=== PATIENT | female | born 1985 | race Caucasian/White ===

== ENCOUNTER 2019-12-25 16:51 | Emergency (ER) | payer OTHER, SELFPAY ==
[2019-12-25 17:17] VITALS: BP 117/80; PULSE 78; RESP 18; TEMP 36.5; O2SAT 98; BMI 29.8
[2019-12-25 18:05] LABS: Influenza A - CEPHEID Flu A NEGATIVE (NEGATIVE); Influenza B - CEPHEID Flu B NEGATIVE (NEGATIVE)
--- NOTE | 2019-12-25 22:03 | DI.RAD.S_ITS ---
PROCEDURE: XR CHEST 2V INDICATIONS: productive cough , fever myalgis TECHNIQUE: 2 views of the chest were acquired. COMPARISON: None. FINDINGS: Surgical changes and devices: None. Lungs and pleura: Increased attenuation is identified at the left lung base. No large effusion or pneumothorax is evident. Mediastinum: Mediastinal contours are normal. Heart size is normal. Bones and chest wall: No suspicious bony abnormalities. Soft tissues appear unremarkable. IMPRESSION: Left lower lobe pneumonia. Dictated by: Francisco Restrepo M.D. on 12/25/2019 at 22:00 Approved by: Francisco Restrepo M.D. on 12/25/2019 at 22:01
[2019-12-25] MEDS: KETOROLAC 60 MG/2 ML VIAL 30 MG IM (22:59)
--- NOTE | 2019-12-25 23:15 | ED_ITS ---
HPI - URI/Sore Throat General Chief Complaint: Upper Respiratory Symptoms Stated Complaint: FEVER ACHES Time Seen by Provider: 12/25/19 21:55 Source: patient Mode of arrival: Ambulatory History of Present Illness HPI Narrative: CC: Fever with Body Aches HPI: The patient is a 34-year-old female who presents to the emergency department with diffuse fatigue and weakness. The patient woke up Saturday feeling weak and tired with diffuse body aches, generalized headache with fever chills and sweats. She denied any fall or injury. She developed a cough productive of a sputum that she did not look at it because it is difficult to bring up. She has had chest pain with coughing and deep breathing. She denied any nasal drainage sinus congestion or sore throat. She has had a tussive headache. She denies any numbness tingling paresthesias anesthesia is or paresis. She has had no significant abdominal pain but has had nausea without vomiting and diarrhea without melena or hematochezia. She has had nose urinary symptoms no dysuria frequency or urgency. 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 Related Data Previous Rx's Medication Instructions Recorded azithromycin [Zithromax] 250 mg PO DAILY 5 Days tab 12/25/19 benzonatate [Tessalon Perles] 100 mg PO TID PRN #14 cap 12/25/19 Allergies Allergy/AdvReac Type Severity Reaction Status Date / Time acetaminophen [From Vicodin] Allergy Verified 12/25/19 17:21 hydrocodone [From Vicodin] Allergy Verified 12/25/19 17:21 Iodinated Contrast Media Allergy Verified 12/25/19 17:21 Review of Systems Review of Systems ROS Unobtainable: All systems reviewed & are unremarkable except as noted in HPI and below Patient History Social History Smoking Status: Never smoker Smoking Status: Never smoker alcohol intake frequency: holidays/special occasions only Substance Use Type: does not use Exam Narrative Exam Narrative: PHYSICAL EXAM: CONSTITUTIONAL: Awake, Alert, Oriented, Coherent, Cooperative in NAD. The patient appears generally tired and fatigued. HEAD: AT/NC EENT: PERRL, FROM of eyes, no discharge, no nystagmus Oral mucosa is moist and pink, posterior pharynx is without erythema or exudate. NECK: Supple, no obvious JVD, Trachea is midline without stridor, no palpable LN or masses. SPINE: No gross deformity, no palpable tenderness of the cervical, thoracic, lumbar or sacral spine. No CVA tenderness. THORAX: No deformity, retractions, chest wall tenderness, subcutaneous air or crepitice. LUNGS: Her basically clear with symmetrical breath sounds. However the patient has a few inspiratory crackles in the left lower base. No significant expiratory rhonchi or wheezes. HEART: Normal heart tones, regular rhythm and rate without murmur. ABDOMEN: Soft, non-tender, normal bowel sounds without guarding, rebound, rigidity or palpable mass or organomegaly. LYMPHATIC: no palpable lymph nodes EXTREMITIES: No edema, cyanosis, deformity or tenderness. SKIN: No rash, bruising, petechiae or purpura. NEURO: Awake, alert, oriented, conversive, cranial nerves II-XII are symmetrical and normal, moves all 4 extremities and is ambulatory Initial Vital Signs Initial Vital Signs: Vital Signs Temperature 97.7 F 12/25/19 17: Pulse Rate 78 12/25/19 17:17 Respiratory Rate 18 12/25/19 17:17 Blood Pressure 117/80 12/25/19 17:17 Pulse Oximetry 98 12/25/19 17:17 Course Course Course Narrative: 2310: Chest x-ray reveals that the patient has a left lower lobe pneumonia. An IV will be started and she will be administered 1 g of Rocephin and 500 mg of Zithromax p.o.. She will be discharged home on Zithromax and be advised to follow-up in be re-evaluated by her family doctor in 48-72 hours. Orders Ordered: Discontinued Medications Azithromycin (Zithromax) 500 mg PO NOW ONE Stop: 12/25/19 23:19 Last Admin: 12/25/19 23:59 Dose: 500 mg Documented by: RUSLAN Ceftriaxone Sodium (Rocephin) 1,000 mg IM NOW ONE Stop: 12/25/19 23:17 Last Admin: 12/26/19 00:00 Dose: 1,000 mg Documented by: URSLAN Ketorolac Tromethamine (Toradol) 30 mg IM NOW ONE Stop: 12/25/19 22:06 Last Admin: 12/25/19 22:59 Dose: 30 mg Documented by: MMERKEL Vital Signs Vital signs: Vital Signs - 8 hr 12/26/19 00:09 Temperature 99.1 F Pulse Rate 86 Respiratory Rate 18 Blood Pressure 110/70 Pulse Oximetry 95 MDM - URI/Sore Throat Medical Records Attestation: I reviewed the patient's medical records. Lab Data Attestation: I reviewed the patient's lab results. Labs: Lab Results 12/25/19 Range/Units 17:18 Influenza A (RT-PCR) Flu a negative (NEGATIVE) Influenza B (RT-PCR) Flu b negative (NEGATIVE) [facility] Narrative Medical decision making narrative: The patient was treated with Rocephin and 500 mg of Zithromax for a left lower lobe pneumonia. She was discharged home on Zithromax 250 mg per day. She was advised to follow-up with her primary care physician and be re-evaluated in 3-4 days. Discharge Plan Departure Patient Disposition: Home Clinical Impression: Productive cough, Myalgia, Generalized body aches Pneumonia Qualifiers: Pneumonia type: due to unspecified organism Laterality: left Lung location: lower lobe of lung Qualified Code(s): J18.9 - Pneumonia, unspecified organism Discharge Date/Time: 12/26/19 00:18 Instructions: DI for Pneumonia -- Adult, DI for Cough -- Adult, DI for Fever (Symptom) -- Adult Activity Restrictions/Additional Instructions: Drink 2-3 L of fluid per day. Take ibuprofen 3, 200 mg tablets every 6 hours for fever aches and pains. You can take acetaminophen/Tylenol 1 g every 6 hours for fever aches and pains. Take the Zithromax 250 mg per day as prescribed until gone. Use the Tessalon Perles 100 mg 3 times a day as needed for cough. If you develop worsening chest pain, shortness of breath, difficulty in breathing, return to the emergency department. Otherwise follow-up with your primary care physician and be re-evaluated in 2-3 days. Prescriptions: New benzonatate [Tessalon Perles] 100 mg capsule 100 mg PO TID PRN (Reason: cough) Qty: 14 RF: 0 azithromycin [Zithromax] 250 mg tablet 250 mg PO DAILY 5 Days RF: 0
[2019-12-25] MEDS: LIDOCAINE 1% (PF) 2 ML (23:59)
[2019-12-25] MEDS: AZITHROMYCIN 250 MG TABLET 500 MG PO (23:59)
[2019-12-26] MEDS: cefTRIAXone 2,000 MG VIAL 1000 MG IM
[2019-12-26 00:09] VITALS: BP 110/70; PULSE 86; RESP 18; TEMP 37.3; O2SAT 95
== END 2019-12-26 00:18 | disposition home or self-care (01) ==
PROVIDERS: Emergency Medicine; Emergency Provider Emergency Medicine
DX: J18.9 Pneumonia, unspecified organism (principal); R05 Cough; M79.10 Myalgia, unspecified site; R52 Pain, unspecified
CPT/HCPCS: 71046; 87502; 96372; 99283; J0696; J1885

== ENCOUNTER 2020-01-25 17:53 | Emergency (ER) | payer OTHER, SELFPAY ==
[2020-01-25 17:56] VITALS: BP 110/76; PULSE 77; RESP 18; TEMP 36.9; O2SAT 100
[2020-01-25 18:44] VITALS: BP 115/78; PULSE 79; RESP 15; TEMP 36.6; O2SAT 97
--- NOTE | 2020-01-25 19:23 | DI.RAD.S_ITS ---
PROCEDURE: XR CHEST 2V INDICATIONS: SOB, hx pneumonia and treated with two courses of abx med TECHNIQUE: 2 views of the chest were acquired. COMPARISON: [facility], CR, XR CHEST 2V, 12/25/2019, 22:00. FINDINGS: Surgical changes and devices: None. Lungs and pleura: Lungs are abnormal best seen on the lateral view with increased radiodensity over the low thoracic spine. This implies a posterior mild pneumonia pattern, which cannot be clearly identified on the frontal projection. This may be secondary to the position of the pneumonia below the axial level of the current position of the dome of the diaphragms. No pleural effusions or pneumothorax. Mediastinum: Mediastinal contours are normal. Heart size is normal. Bones and chest wall: No suspicious bony abnormalities. Soft tissues appear unremarkable. IMPRESSION: Mild or early pneumonia posteriorly, laterality uncertain. Dictated by: Barry Russell M.D. on 01/25/2020 at 19:54 Approved by: Barry Russell M.D. on 01/25/2020 at 19:56
--- NOTE | 2020-01-25 19:42 | ED_ITS ---
HPI - URI/Sore Throat <LEAH Tatum - Last Filed: 01/25/20 21:37> General Chief Complaint: Upper Respiratory Symptoms Stated Complaint: Pneumonia for 1 Month, SOB, Tingly Time Seen by Provider: 01/25/20 18:56 Source: patient Mode of arrival: Ambulatory Limitations: no limitations History of Present Illness HPI Narrative: This is a 34 year female who presents to ED with ongoing upper respiratory infection/pneumonia symptoms and sore throat for last 2 days. Patient was seen in the ER in the beginning of December and was treated for pneumonia with IV Rocephin 1 g and discharged to home with azithromycin for 5 day course. She then developed rash after completing is a course of azithromycin a day or 2 days. She was not able to follow-up with her PCP as instructed. However, she followed up with walk-in clinic at [facility] and was told she still has pneumonia and was prescribed with Levaquin for 10 day course. After she completed Levaquin, she reports fever and chills resolved but she still has short of breath and rattling in feeling in her chest, stabbing discomfort in her upper chest and left upper back. She gets winded easily at times. She also has difficult time sleeping last 2 weeks. She denies foreign travel. She reports her son recently had strep throat and is currently taking antibiotic medications. She continues to have nasal congestion is as well. Related Data Home Medications Medication Instructions Recorded Confirmed albuterol sulfate [ProAir HFA] INHALATION 01/25/20 loratadine 10 mg PO DAILY 01/25/20 01/25/20 Previous Rx's Medication Instructions Recorded benzonatate [Tessalon Perles] 100 mg PO TID PRN #14 cap 12/25/19 doxycycline hyclate 100 mg PO BID 7 Days #14 tab 01/25/20 prednisone 40 mg PO DAILY 4 Days #8 tab 01/25/20 Allergies Allergy/AdvReac Type Severity Reaction Status Date / Time acetaminophen [From Vicodin] Allergy Verified 12/25/19 17:21 hydrocodone [From Vicodin] Allergy Verified 12/25/19 17:21 Iodinated Contrast Media Allergy Verified 12/25/19 17:21 Review of Systems <LEAH Tatum - Last Filed: 01/25/20 21:37> Review of Systems Narrative: General: Denies fever, chills, (+) fatigue, (+) malaise, sweats. HEENT: Denies sinus pain, ear pain, (+) sore throat, difficulty swallowing, dizziness. Respiratory: See HPI Cardiovascular: Denies chest pain, palpitations, orthopnea, edema. Gastrointestinal: Denies nausea, vomiting, abdominal pain, diarrhea, constipation, melena. : Denies dysuria, frequency, incontinence, hematuria, urinary retention. Musculoskeletal: Denies weakness, joint pain or bony pain. Skin: Denies rash, skin lesions, or other. Neurologic: Denies weakness, headache, numbness, change in speech, confusion, seizures, incoordination. Psychiatric: No concerning psychosocial issues. 12-point review of systems is negative except for those stated above. Patient History <LEAH Tatum - Last Filed: 01/25/20 21:37> Surgical History History of (Acute) S/P cholecystectomy (Acute) Social History Smoking Status: Never smoker Smoking Status: Never smoker alcohol intake frequency: holidays/special occasions only Substance Use Type: does not use Exam <LEAH Tatum - Last Filed: 01/25/20 21:37> Narrative Exam Narrative: GEN: Alert, oriented x 3, well appearing and nourished, and in no acute distress. Head: Normal cephalic, atraumatic. No scalp or temporal tenderness, palpable mass or rash. EYES: Pupils are equal, round, and reactive to light and accommodation. Extraocular muscles are intact bilaterally. There is no subconjunctival hemorrhage, exudate and sclera non-icteric. ENT: Bilateral auditory canals and tympanic membranes clear. Hearing grossly intact. Nose without bleeding, purulent discharge or deviation but with turbinate redness and swelling. Facial sinuses nontender to palpate. Mucous membrane moist, no mucosal lesion. Throat without erythema, tonsillar hypertrophy or exudate. Uvula in midline, airway patent. Neck: Trachea in midline. No JVD, tender to palpate with anterior cervical adenopathy. No masses or thyroid megaly. Supple, non-tender and no meningeal signs. CARDIAC: Normal regular rate and rhythm without murmurs, gallops, or rubs. No chest wall tenderness. No peripheral edema, cyanosis or pallor. Capillary refill is less than 2 seconds. RESPIRATORY: Lungs are clear to auscultate bilaterally. No cough, wheezes, rales, or rhonchi. No stridor, respiratory distress, increase work of breathing, or accessary muscle used. ABD: Abdomen soft, nontender and non-distended. No guarding or rebound tenderness to palpate. Bowel sounds are normal in all 4 quadrants. There is no palpable masses or organomegaly. EXT: Full painless ROM of all extremities with no loss of sensation, strength, effusion or edema. SKIN: Warm, dry, normal color for patient. No erythema, lesions or rash over visible areas. BACK: Nontender without deformity or crepitance. No flank tenderness. NEUROLOGICAL: Alert and oriented to place, time and person. Sensation and motor function intact bilaterally. No facial droops, dysphasia. PSYCHIATRIC: Good judgement and reason, without hallucinations, abnormal affect or abnormal behaviors during the examination. Initial Vital Signs Initial Vital Signs: Vital Signs Temperature 98.4 F 01/25/20 17:56 Pulse Rate 77 01/25/20 17:56 Respiratory Rate 18 01/25/20 17:56 Blood Pressure 110/76 01/25/20 17:56 Pulse Oximetry 100 01/25/20 17:56 <Renetta Elizondo DO - Last Filed: 01/26/20 01:54> Initial Vital Signs Initial Vital Signs: Vital Signs Temperature 98.4 F 01/25/20 17:56 Pulse Rate 77 01/25/20 17:56 Respiratory Rate 18 01/25/20 17:56 Blood Pressure 110/76 01/25/20 17:56 Pulse Oximetry 100 01/25/20 17:56 Scores <LEAH Tatum - Last Filed: 01/25/20 21:37> GCS Drayden coma scale eye opening: Spontaneous Serafin coma scale verbal response: Orientated Serafin coma scale motor response: Obey commands Drayden coma scale total score: 15 Course <LEAH Tatum - Last Filed: 01/25/20 21:37> Orders Ordered: ED Orders 01/25/20 19:23 XR chest 2V Stat Discontinued Medications Doxycycline Hyclate (Vibramycin) 100 mg PO NOW ONE Stop: 01/25/20 20:39 Last Admin: 01/25/20 20:56 Dose: 100 mg Documented by: NICKOLAS Prednisone (Deltasone) 40 mg PO NOW ONE Stop: 01/25/20 20:39 Last Admin: 01/25/20 20:56 Dose: 40 mg Documented by: NICKOLAS Vital Signs Vital signs: Vital Signs - 8 hr 01/25/20 17:56 01/25/20 18:44 01/25/20 21:04 Temperature 98.4 F 97.9 F Pulse Rate 77 79 65 Respiratory Rate 18 15 16 Blood Pressure 110/76 Blood Pressure [Left Arm] 115/78 126/85 Pulse Oximetry 100 97 100 <Renetta Elizondo DO - Last Filed: 01/26/20 01:54> Orders Ordered: ED Orders 01/25/20 19:23 XR chest 2V Stat Discontinued Medications Doxycycline Hyclate (Vibramycin) 100 mg PO NOW ONE Stop: 01/25/20 20:39 Last Admin: 01/25/20 20:56 Dose: 100 mg Documented by: NICKOLAS Prednisone (Deltasone) 40 mg PO NOW ONE Stop: 01/25/20 20:39 Last Admin: 01/25/20 20:56 Dose: 40 mg Documented by: NICKOLAS Vital Signs Vital signs: Vital Signs - 8 hr 01/25/20 17:56 01/25/20 18:44 01/25/20 21:04 Temperature 98.4 F 97.9 F Pulse Rate 77 79 65 Respiratory Rate 18 15 16 Blood Pressure 110/76 Blood Pressure [Left Arm] 115/78 126/85 Pulse Oximetry 100 97 100 MDM - URI/Sore Throat <LEAH Tatum - Last Filed: 01/25/20 21:37> Differential Diagnosis Differential diagnosis: Likely upper respiratory infection, pharyngitis and other (CAP) Medical Records Attestation: I reviewed the patient's medical records. Lab Data Attestation: I reviewed the patient's lab results. Labs: Point of Care Testing Rapid Strep A Negative Imaging Data Chest x-ray: Radiologist's Impression: [address] [address] XRay Report Signed Patient: Anna Mendoza [facility]#: [id number] : 1985Acct:[id number] Age/Sex: 34 / FDate of Service: 01/25/20 Loc: ED Accession Number: [id number] Procedure: XR chest 2V Ordering Provider: José Bojorquez PROCEDURE: XR CHEST 2V INDICATIONS: SOB, hx pneumonia and treated with two courses of abx med TECHNIQUE: 2 views of the chest were acquired. COMPARISON: [facility], CR, XR CHEST 2V, 12/25/2019, 22:00. FINDINGS: Surgical changes and devices: None. Lungs and pleura: Lungs are abnormal best seen on the lateral view with increased radiodensity over the low thoracic spine. This implies a posterior mild pneumonia pattern, which cannot be clearly identified on the frontal projection. This may be secondary to the position of the pneumonia below the axial level of the current position of the dome of the diaphragms. No pleural effusions or pneumothorax. Mediastinum: Mediastinal contours are normal. Heart size is normal. Bones and chest wall: No suspicious bony abnormalities. Soft tissues appear unremarkable. IMPRESSION: Mild or early pneumonia posteriorly, laterality uncertain. Dictated by: Barry Russell M.D. on 01/25/2020 at 19:54 Approved by: Barry Russell M.D. on 01/25/2020 at 19:56 MDM Narrative Medical decision making narrative: This is a 34 year female who was diagnosed with pneumonia about a month ago and completed 2 courses of antibiotic medication treatment with azithromycin 5 day course and Levaquin for 10 day course about a week ago. Patient reports still has symptoms for pneumonia but improved chills and fever. Patient continue to have intermittent short of breath, rattling on her chest. She also has sore throat for last 2 days and reports her son is currently getting treatment for strep throat infection. Lung sounds are clear to auscultate without increased work of breathing. The patient is afebrile. Strep throat swab was negative. Chest x-ray indicates concerns for mild early posterior all lower lobe pneumonia. Patient was treated with doxycycline 100 mg for atypical pneumonia and prednisone 40 mg and discharged to home with remaining course for 7 day duration of antibiotic and 5 day course of steroids. Before patient discharged to home, patient reports she is to take chest CT tomorrow which was ordered by her PCP. Patient advised to continue with this plan but contact her PCP for today's visit that she has started another course of antibiotic medication and steroids. Patient advised to incorporate probiotics to decreased GI symptoms for infection. Return precautions were discussed with the patient and patient verbalized the understanding and in agreement with treatment. Also, patient advised to slat pickler albuterol inhaler that was prescribed for her PCP and to use as needed for chest tightness, frequent coughing, short of breath. <Renetta Elizondo, DO - Last Filed: 01/26/20 01:54> Lab Data Labs: Point of Care Testing Rapid Strep A Negative MDM Narrative Medical decision making narrative: Case was discussed in patient's chest x-ray was reviewed. She does potentially have some pneumonia on radiology read this could be left over from prior pneumonia if patient continues to have symptoms. She does not have any pulmonary emboli symptoms or other ACS type symptoms. Patient given additional round of antibiotics but of continued symptoms she will need further imaging and workup. Discharge Plan Departure Patient Disposition: Home Clinical Impression: Pneumonia Qualifiers: Pneumonia type: due to unspecified organism Laterality: unspecified laterality Lung location: unspecified part of lung Qualified Code(s): J18.9 - Pneumonia, unspecified organism Discharge Date/Time: 01/25/20 21:13 Instructions: DI for Atypical Pneumonia Activity Restrictions/Additional Instructions: You have been diagnosed with [mild or early pneumonia in posterior lobe and laterality is uncertain. This may be due to residual pneumonia that you had last month. The strep throat swab was negative. You were treated doxycycline and prednisone 1st dose while in ED.]. What to do: *Take your medications as directed. Please consult your PCP tomorrow after the chest CT to continue with antibiotic medications. Doxycycline is twice a day for 7 days. Prednisone is once a day for next 4 more days. You should slat pickler the inhaler and use it as needed for chest tightness, wheezing, frequent coughing. Hydrate well and rest as needed. *Follow up with your primary care provider in 2-3 days, call for an appointment. Let them know you were seen in the ED and that we asked you to be seen in follow up. *Return to ED if you have any new, worsening, or concerning symptoms, such as [chest pain, breathing difficulty, unable to tolerate fluids, or any acute concerns]. Prescriptions: New prednisone 20 mg tablet 40 mg PO DAILY 4 Days Qty: 8 RF: 0 doxycycline hyclate 100 mg tablet 100 mg PO BID 7 Days Qty: 14 RF: 0 No Action benzonatate [Tessalon Perles] 100 mg capsule 100 mg PO TID PRN (Reason: cough) Qty: 14 RF: 0 albuterol sulfate [ProAir HFA] 90 mcg/actuation HFA aerosol inhaler INHALATION RF: 0 loratadine 10 mg tablet 10 mg PO DAILY RF: 0 Referrals: [facility] [Outside]
[2020-01-25] MEDS: DOXYCYCLINE HYCLATE 100 MG TABLET PO (20:56)
[2020-01-25] MEDS: predniSONE 20 MG TABLET 40 MG PO (20:56)
[2020-01-25 21:04] VITALS: BP 126/85; PULSE 65; RESP 16; O2SAT 100
== END 2020-01-25 21:13 | disposition home or self-care (01) ==
PROVIDERS: Emergency Provider Nurse Practitioner Family
DX: J18.9 Pneumonia, unspecified organism (principal)
CPT/HCPCS: 71046; 87880; 99283

== ENCOUNTER → 2020-06-13 10:56 | Outpatient (CLI) | payer OTHER, SELFPAY ==
[2020-06-15 13:49] LABS: COVID19 Sendout Not Detected (Not Detect)
== END ==
PROVIDERS: Visit Provider Physician Assistant
DX: Z11.59 Encounter for screening for other viral diseases (principal)
CPT/HCPCS: 87635

== ENCOUNTER → 2020-06-16 09:51 | Outpatient (CLI) | payer OTHER, SELFPAY ==
--- NOTE | 2020-06-26 13:10 | PM.PFT.1 ---
Pulmonary Function Test Referral & Results Date Patient Seen: 06/16/20 Requesting provider: Oscar Hicks Indication: Cough Results: The spirometry demonstrates an FVC of 4.71 L which is 117% of predicted. The FEV1 was measured at 4.30 L which is 120% of predicted. The FEV1/FVC ratio was 91 which is 108% of predicted. Following the administration of bronchodilator there was no appreciable change to above normal numbers. Lung volumes show an SVC of 4.16 L which is 108% of predicted. The diffusing capacity was measured at 27.98 which is 103% of predicted. The maximum voluntary ventilation was normal Interpretation: This study demonstrates normal pulmonary function
== END ==
PROVIDERS: Referring Provider Internal Medicine Pulmonary Disease; Visit Provider Internal Medicine Pulmonary Disease
DX: R05 Cough (principal)
CPT/HCPCS: 94060; 94726; 94729

== ENCOUNTER 2021-02-03 11:39 | Emergency (ER) | payer OTHER, SELFPAY ==
[2021-02-03 11:45] VITALS: BP 136/83; PULSE 82; RESP 18; TEMP 36.7; O2SAT 100; BMI 31.4
[2021-02-03 11:46] VITALS: PULSE 80; O2SAT 100
--- NOTE | 2021-02-03 12:37 | ED_ITS ---
HPI - Back Pain/Injury <LEAH Tatum - Last Filed: 02/03/21 13:46> General Chief Complaint: Back Pain/Injury Stated Complaint: injured her back Time Seen by Provider: 02/03/21 12:10 Source: patient Mode of arrival: Ambulatory Limitations: no limitations History of Present Illness HPI Narrative: This is a 35 year female, former smoker, who has no contributory medical history presents to ED with chief complain of low thoracic to lumbar back pain. Patient reports initially had some mild back discomfort over week and when she had put together an equipments/furniture and when she picked up her 5 year old son who is about 50 lbs last night, she immediately felt pinch like discomfort and spasming discomfort low thoracic to lumbar region worse on right- sided. Patient denies tingling/numbness/weakness to lower extremities or saddle anesthesia. She denies incontinence for stools or bladder. Patient denies fever, chills, nausea, vomiting and history of IV drug use. Patient denies urinary symptoms such as urgency, frequency, hematuria, dysuria. Patient reports she has been in normal state of health recently. She reports pain worse when she is forward flexing and extending her back. She had a few days of severe back pain when she was 24-year-old when she picked up a heavy load laundry basket. PCP and [employer]. Patient also reports left ring finger pain for last 2-3 weeks after she accidentally abducted affected finger after it got caught on stairs railing. Patient reports she is able to flex, extend, rotate affected finger against resistance and intact sensation and the pain has been improving is concerned it has been taking a long time to get better. She reports pruritus rash in left axilla for more than a month. She associated is her symptoms after started using new deodorant. She stopped the new deodorant shortly after and has been using [id number] ointments for fungal infection, steroids with marginal improvement. She denies fever, chills, warm to touch, drainage from affected site. Related Data Home Medications Medication Instructions Recorded Confirmed albuterol sulfate [ProAir HFA] INHALATION 01/25/20 loratadine 10 mg PO DAILY 01/25/20 01/25/20 Previous Rx's Medication Instructions Recorded benzonatate [Tessalon Perles] 100 mg PO TID PRN #14 cap 12/25/19 cyclobenzaprine 10 mg PO BID PRN #10 tab 02/03/21 hydrocortisone 1 applic TOPICAL TID PRN #28 g 02/03/21 lidocaine 1 patch TOPICAL DAILY PRN #30 ea 02/03/21 Allergies Allergy/AdvReac Type Severity Reaction Status Date / Time acetaminophen [From Vicodin] Allergy Verified 02/03/21 11:51 hydrocodone [From Vicodin] Allergy Verified 02/03/21 11:51 Iodinated Contrast Media Allergy Verified 02/03/21 11:51 Review of Systems <STEWART TatumP - Last Filed: 02/03/21 13:46> Review of Systems Narrative: General: Denies fever, chills, fatigue, malaise, sweats. HEENT: Denies sinus pain, ear pain, sore throat, difficulty swallowing, dizziness. Respiratory: Denies dyspnea, cough, wheezing, hemoptysis, sputum. Cardiovascular: Denies chest pain, palpitations, orthopnea, edema. Gastrointestinal: Denies nausea, vomiting, abdominal pain, diarrhea, constipation, melena. : Denies dysuria, frequency, incontinence, hematuria, urinary retention. Musculoskeletal: See HPI Skin: See HPI Neurologic: Denies weakness, headache, numbness, change in speech, confusion, seizures, incoordination. Psychiatric: No concerning psychosocial issues. 12-point review of systems is negative except for those stated above. Patient History <STEWART TatumP - Last Filed: 02/03/21 13:46> Surgical History History of S/P cholecystectomy Social History Smoking Status: Former smoker Smoking Status: Former smoker alcohol intake frequency: 0-2 drinks per day Substance Use Type: does not use Exam [facility] Last Filed: 02/03/21 13:46> Narrative Exam Narrative: GEN: Alert, oriented x 3, well appearing and nourished, and in no acute distress. Head: Normal cephalic, atraumatic. No scalp or temporal tenderness, palpable mass or rash. EYES: Pupils are equal, round, and reactive to light and accommodation. Extraocular muscles are intact bilaterally. There is no subconjunctival hemorrhage, exudate and sclera non-icteric. ENT: Hearing grossly intact. Airway patent. Neck: Trachea in midline. No JVD, non-tender without lymphadenopathy. No masses or thyroid megaly. Supple, non-tender and no meningeal signs. CARDIAC: Normal regular rate and rhythm without murmurs, gallops, or rubs. No chest wall tenderness. No peripheral edema, cyanosis or pallor. Capillary refill is less than 2 seconds. RESPIRATORY: Lungs are clear to auscultate bilaterally. No cough, wheezes, rales, or rhonchi. No stridor, respiratory distress, increase work of breathing, or accessary muscle used. ABD: Abdomen soft, nontender and non-distended. Bowel sounds are normal in all 4 quadrants. There is no palpable masses or organomegaly. SKIN: Slightly erythematous and edematous patch in left axilla without obvious warm to touch. No drainage. BACK: Some tenderness to palpate in paraspinous in low thoracic to lumbar region without deformity or crepitance. No spinous tenderness. No rash, warm th, edema on affected site. No flank tenderness. NEUROLOGICAL: Alert and oriented to place, time and person. Sensation and motor function intact bilaterally. No facial droops, dysphasia. PSYCHIATRIC: Good judgement and reason, without hallucinations, abnormal affect or abnormal behaviors during the examination. Patient is not suicidal. Initial Vital Signs Initial Vital Signs: Vital Signs Temperature 98.1 F 02/03/21 11:45 Pulse Rate 82 02/03/21 11:45 Respiratory Rate 18 02/03/21 11:45 Blood Pressure 136/83 02/03/21 11:45 Pulse Oximetry 100 02/03/21 11:45 Extrem Left upper extremity: hand Details: normal to inspection, normal capillary refill, neuromotor exam normal, tendon exam normal, vascular exam, normal ROM of fingers and swelling (Very mild swelling to left 5th metacarpal); no lacerations, no ecchymosis and no crepitus <Christiano Jimenez, - Last Filed: 02/03/21 14:58> Initial Vital Signs Initial Vital Signs: Vital Signs Temperature 98.1 F 02/03/21 11:45 Pulse Rate 82 02/03/21 11:45 Respiratory Rate 18 02/03/21 11:45 Blood Pressure 136/83 02/03/21 11:45 Pulse Oximetry 100 02/03/21 11:45 Scores <LEAH Tatum - Last Filed: 02/03/21 13:46> GCS Serafin coma scale eye opening: Spontaneous Serafin coma scale verbal response: Orientated Blacklick coma scale motor response: Obey commands Blacklick coma scale total score: 15 qSOFA Altered Mental Status (GCS <15): No Respiratory rate greater than/equal to 22: No Systolic blood pressure less than or equal to 100: No qSOFA Total: 0 0-1 Not High Risk 1-3 High risk Course <LEAH Tatum - Last Filed: 02/03/21 13:46> Orders Ordered: Discontinued Medications Acetaminophen (Acetaminophen 325 Mg Tablet) 650 mg PO NOW ONE Stop: 02/03/21 12:37 Last Admin: 02/03/21 12:41 Dose: 650 mg Documented by: VICTORIANOM Lidocaine (Lidocaine Patch 1 Each Adh..Patch) 1 each TOP NOW ONE Stop: 02/03/21 12:37 Last Admin: 02/03/21 12:41 Dose: 1 each Documented by: ALEJO Vital Signs Vital signs: Vital Signs - 8 hr 02/03/21 11:45 02/03/21 11:46 02/03/21 13:11 Temperature 98.1 F Pulse Rate 82 80 65 Respiratory Rate 18 Blood Pressure 136/83 122/71 Pulse Oximetry 100 100 100 <Christiano Jimenez DO - Last Filed: 02/03/21 14:58> Orders Ordered: Discontinued Medications Acetaminophen (Acetaminophen 325 Mg Tablet) 650 mg PO NOW ONE Stop: 02/03/21 12:37 Last Admin: 02/03/21 12:41 Dose: 650 mg Documented by: VICTORIANOM Lidocaine (Lidocaine Patch 1 Each Adh..Patch) 1 each TOP NOW ONE Stop: 02/03/21 12:37 Last Admin: 02/03/21 12:41 Dose: 1 each Documented by: ALEJO Vital Signs Vital signs: Vital Signs - 8 hr 02/03/21 11:45 02/03/21 11:46 02/03/21 13:11 Temperature 98.1 F Pulse Rate 82 80 65 Respiratory Rate 18 Blood Pressure 136/83 122/71 Pulse Oximetry 100 100 100 MDM - Back Pain/Injury <LEAH Tatum - Last Filed: 02/03/21 13:46> Differential Diagnosis Differential diagnosis: Likely strain of lumbar region, thoracic back pain and other (Finger sprain, pruritus in left axilla likely allergy reaction) Medical Records Attestation: I reviewed the patient's medical records. [facility] Narrative Medical decision making narrative: This is a 35-year-old female has a history of remote back pain once 11 years ago presents to ED after she had mild back pain 5-6 days ago when she put together an equipment and became worse immediately after she picked up her about 50 lb old son last night. Patient reports pain increases with forward flexion and extension motion. No weakness, numbness to lower extremities, no saddle anesthesia or incontinence since the injury. Patient denies urinary symptoms. Patient's physical exam tender to palpate in paraspinous region in lower thoracic to lumbar region with good strength in bilateral lower extremities. Patient had taken 400 mg of ibuprofen 2 hours before coming into ED. discussed pain management with muscle relaxant, lidocaine patch, NSAIDs, and Tylenol with early rehabilitation when acute pain subsides and to f/u with primary care physician for re-evaluation and a possible a referral to physical therapist if pain persists. Left ring finger without acute findings per physical exam with mild swelling to proximal metacarpal maria elena on with good strength with extension and flexion and lateral deviation motion. Patient had intact sensation. Advised continue to monitor her symptoms and appears to be sprain is healing at this time. Left pruritus axilla rash after using a new deodorant. Patient discharged to home stronger than [id number] hydrocortisone steroids cream to treat as dermatitis/allergic reaction. Patient is low risk for fungal infection since she is not overweight, has no history of diabetes and advised to monitor if he gets worse stop using steroids cream and to follow-up with primary care physician. She had stopped the a new deodorant after rash started. Return precautions discussed with patient and she verbalized understanding and agreement with the treatment plan. Discharge Plan Departure Patient Disposition: Home Clinical Impression: Pruritus Back pain Qualifiers: Back pain location: low back pain Chronicity: acute Back pain laterality: bilateral Sciatica presence: without sciatica Qualified Code(s): M54.5 - Low back pain Finger sprain Qualifiers: Encounter type: initial encounter Finger: little finger Sprain of finger site: metacarpophalangeal joint Laterality: left Qualified Code(s): S63.657A - Sprain of metacarpophalangeal joint of left little finger, initial encounter Instructions: DI for Finger Sprain, DI for Atopic Dermatitis-Adult, DI for Back Strain or Sprain Activity Restrictions/Additional Instructions: You have been diagnosed with [back strain, finger sprain, dermatitis/pruritus likely allergy reaction]. What to do: *Take your medications as directed. You can take [id number] Tylenol and or Motrin as needed for discomfort. Tylenol 650-1000 mg up to 3 times a day. Ibuprofen 400-600 mg up to 3 times a day as needed for pain with food to decreas e GI upset. You can use steroids cream on left axilla up to 2 to 3 times a day as little as possible as needed for itching rash. Finger sprain appears to be healing at this time. If steroids cream make symptoms worse, please stop using this. You can use muscle relaxant Flexeril as needed for back spasm or muscle tightness. This can cause drowsiness so please take precautions not driving, drinking alcohol, or operating heavy equipments. This medication have been transmitted to [facility] in [place]. *Follow up with your primary care provider in 2-3 days, call for an appointment. Let them know you were seen in the ED and that we asked you to be seen in follow up. *Return to ED if you have any new, worsening, or concerning symptoms, such as [fever, incontinence for stools/bladder, weakness/numbness/tingling on bilateral lower extremities or perineum, chest pain, breathing difficulty, unable to tolerate fluids, or any acute concerns]. Prescriptions: New lidocaine 5 % adhesive patch,medicated 1 patch topical DAILY PRN (Reason: back pain) Qty: 30 RF: 0 cyclobenzaprine 10 mg tablet 10 mg PO BID PRN (Reason: muscle spasm) Qty: 10 RF: 0 hydrocortisone 2.5 % cream 1 applic topical TID PRN (Reason: allergic reaction) Qty: 28 RF: 0 No Action benzonatate [Tessalon Perles] 100 mg capsule 100 mg PO TID PRN (Reason: cough) Qty: 14 RF: 0 albuterol sulfate [ProAir HFA] 90 mcg/actuation HFA aerosol inhaler INHALATION RF: 0 loratadine 10 mg tablet 10 mg PO DAILY RF: 0 Referrals: [facility] [Outside] <Christiano Jimenez, DO - Last Filed: 02/03/21 14:58> Cosign ED Attending Cosignature Attestation: Dr Jimenez Co-Sign Statement: I was available for consultation during this patient's emergency department visit. This chart is signed by myself for administrative purposes only. I did not have direct contact with this patient during this visit. They were seen independently by the APC.
[2021-02-03] MEDS: ACETAMINOPHEN 325 MG TABLET 650 MG PO (12:41)
[2021-02-03] MEDS: LIDOCAINE PATCH 1 EACH ADH..PATCH TOP (12:41)
[2021-02-03 13:11] VITALS: BP 122/71; PULSE 65; O2SAT 100
== END 2021-02-03 13:11 | disposition home or self-care (01) ==
PROVIDERS: Emergency Provider Nurse Practitioner Family
DX: L29.9 Pruritus, unspecified (principal); S63.657A Sprain of metacarpophalangeal joint of left little finger, initial encounter; M54.5 Low back pain
CPT/HCPCS: 99282; 99283

== ENCOUNTER 2021-11-30 21:34 | Emergency (ER) | payer OTHER, SELFPAY ==
[2021-11-30 21:39] VITALS: BP 139/99; PULSE 86; RESP 20; TEMP 36.7; O2SAT 100; BMI 27.3
--- NOTE | 2021-11-30 21:46 | DI.RAD.S_ITS ---
PROCEDURE: XR CHEST 2V INDICATIONS: shortness of breath TECHNIQUE: 2 views of the chest were acquired. COMPARISON: , , XR CHEST 2V, 12/25/2019, 22:00. , CR, XR CHEST 2V, 01/25/2020, 19:23. FINDINGS: Surgical changes and devices: None. Lungs and pleura: Lungs are clear. No pleural effusions or pneumothorax. Mediastinum: Mediastinal contours are normal. Heart size is normal. Bones and chest wall: No suspicious bony abnormalities. Soft tissues appear unremarkable. IMPRESSION: No acute cardiopulmonary abnormalities or focal airspace disease. Dictated by: Shayne Carbajal M.D. on 11/30/2021 at 22:14 Approved by: Shayne Carbajal M.D. on 11/30/2021 at 22:15
--- NOTE | 2021-11-30 22:00 | PC.NURSE ---
pt states since she has had cp with exertion tonight the pain radiated up into her neck, at this time pt states the pain is in her left chest only, pain increases with deep breath, no meds have been taken for the pain pt is unable to describe the pain
[2021-11-30 22:12] LABS: Add Manual Diff / Slide Review NO; Basophils Absolute Auto 100 /uL (0-100); Basophils Percent Auto 0.7 % (0-2); Eosinophils Absolute Auto 400 /uL (0-450); Hematocrit 39.5 % (36-46); Hemoglobin 13.6 g/dL (12.0-16.0); Lymphocytes Absolute Auto 2000 /uL (1100-4500); Lymphocytes Percent Auto 22.8 % (25-40); Mean Corpuscular HGB Conc 34.6 % (30-36); Mean Corpuscular Volume 83.8 fL (80-100); Monocytes Absolute Auto 900 /uL (0-900); Monocytes Percent Auto 9.7 % (3-14); Neutrophils Absolute Auto 5500 /uL (1500-7000); Neutrophils Percent Auto 62.8 % (50-75); Platelet Count 196 X10^3/uL (150-400); Red Blood Cell Count 4.71 X10^6/uL (4.0-5.2); Red Cell Distribution Width 12.3 % (11.6-14.8); White Blood Cell Count 8.8 X10^3/uL (4.5-11.0)
--- NOTE | 2021-11-30 22:25 | ED.CHESTPAIN ---
HPI - Chest Pain General Chief Complaint: Shortness of Breath/Dyspnea Stated Complaint: sent for chest pain Time Seen by Provider: 11/30/21 21:45 History of Present Illness HPI narrative: 36-year-old female former smoker presents at the request of her physician for evaluation of chest pain and shortness of breath. She states that she has been having various symptoms since before which included some left-sided chest pain that is sharp and stabbing and seems to be worse with deep breath and movement. She states that on occasion it radiates to her back and sometimes up into the left side of her neck. She denies any dizziness, weakness or lightheadedness. She denies any blurred vision, trouble with speech or weakness. She denies any injury or overuse. She has had no runny nose, sore throat or cough. She denies any recent travel, history of blood clot or use of control. Additionally, she states that she has had occasional cramps in her legs but denies any redness, swelling or warmth. Finally, and perhaps most concerning to her is becoming increasingly fatigued and short of breath often times with minimal exertion. She denies any obvious weight gain or increased symptoms when lying flat. At the time of my evaluation she is not having pain and not short of breath. She demonstrates no increased work of breathing and is resting comfortably Related Data Home Medications Medication Instructions Recorded Confirmed albuterol sulfate 90 mcg/actuation INHALATION 01/25/20 aerosol inhaler (ProAir HFA) loratadine 10 mg tablet 10 mg PO DAILY 01/25/20 01/25/20 Previous Rx's Medication Instructions Recorded benzonatate 100 mg capsule 100 mg PO TID PRN #14 cap 12/25/19 (Rito Palma) cyclobenzaprine 10 mg tablet 10 mg PO BID PRN #10 tab 02/03/21 hydrocortisone 2.5 % topical cream 1 applic TOPICAL TID PRN #28 g 02/03/21 lidocaine 5 % topical patch 1 patch TOPICAL DAILY PRN #30 ea 02/03/21 Allergies Allergy/AdvReac Type Severity Reaction Status Date / Time acetaminophen [From Vicodin] Allergy Verified 02/03/21 11:51 hydrocodone [From Vicodin] Allergy Verified 02/03/21 11:51 Review of Systems Review of Systems Narrative: GENERAL: Denies chills, fatigue, malaise, fever, sweats. HEENT: Denies sinus pain, ear pain, sore throat, difficulty swallowing, dizziness. RESPIRATORY: See HPI CARDIOVASCULAR: See HPI GASTROINTESTINAL: Denies nausea, vomiting, abdominal pain, diarrhea, constipation, melena. : Denies dysuria, frequency, incontinence, hematuria, urinary retention. MUSCULOSKELETAL: denies weakness, joint pain, or bony pain SKIN: Denies rash, skin lesions, or other NEUROLOGIC: Denies weakness, headache, numbness, change in speech, confusion, seizures, incoordination. PSYCHIATRIC: No concerning psychosocial issues. 12 point review of systems is negative except for those stated above Patient History Surgical History History of S/P cholecystectomy Social History Smoking Status: Former smoker Smoking Status: Former smoker alcohol intake frequency: 0-2 drinks per day Substance Use Type: does not use Exam Narrative Exam Narrative: GENERAL: [36 year old patient appears stated age. Well-developed patient, in no obvious distress, no increased work of breathing, normal vitals HEAD: Atraumatic. Normocephalic. EYES: Pupils equal round and reactive. Extraocular motions intact. No scleral icterus. No injection or drainage. ENT: Nose without bleeding, purulent drainage. Throat without erythema, tonsillar hypertrophy or exudate. Airway patent. NECK: Trachea midline. Non tender CARDIOVASCULAR: Regular rate and rhythm without murmurs, gallops, or rubs. RESPIRATORY: Clear to auscultation. Breath sounds equal bilaterally. No wheezes, rales, or rhonchi. Patient does report some pleuritic type chest pain with deep breath GASTROINTESTINAL: Abdomen soft, non-tender, nondistended. EXTREMITIES: No edema or joint tenderness. No erythema or warmth BACK: Nontender without deformity or crepitance. No flank tenderness. NEURO: AOx3. SKIN: No rash or erythema of visible areas Initial Vital Signs Initial Vital Signs: Vital Signs Temperature 98.1 F 11/30/21 21:39 Pulse Rate 86 11/30/21 21:39 Respiratory Rate 20 11/30/21 21:39 Blood Pressure 139/99 H 11/30/21 21:39 Pulse Oximetry 100 01/13/22 21:39 Course Course Course Narrative: Though patient does have a negative D-dimer and pulmonary embolism is unlikely other significant diagnoses such as pericardial effusion, pleural effusion, pneumonia, pneumothorax and others would be seen on CT angiogram hence my decision to order it. Orders Ordered: ED Orders 11/30/21 21:46 XR chest 2V Stat COVID19 -Nasal swab/Pre-Proc Stat EKG-12 Lead Stat Measure peak expiratory flow ONCE RT Consult Eval and Treat Now 11/30/21 21:58 Complete Blood Count AUTO DIFF Stat Comprehensive Metabolic Panel Stat D Dimer Stat Lactate (Lactic Acid) Stat 11/30/21 22:52 CT angio chest PE protocol Stat Vital Signs Vital signs: Vital Signs - 8 hr 11/30/21 21:39 11/30/21 23:03 Temperature 98.1 F Pulse Rate 86 91 H Respiratory Rate 20 16 Blood Pressure 139/99 H 115/76 Pulse Oximetry 100 MDM - Chest Pain Lab Data Result diagrams: 11/30/21 21:58 11/30/21 21:58 Labs: Lab Results 11/30/21 11/30/21 11/30/21 Range/Units 21:46 21:58 21:58 WBC 8.8 (4.5-11.0) X10^3/uL RBC 4.71 (4.0-5.2) X10^6/uL Hgb 13.6 (12.0-16.0) g/dL Hct 39.5 (36-46) % MCV 83.8 (80-100) fL MCH 29.0 (26-34) PG MCHC 34.6 (30-36) % RDW 12.3 (11.6-14.8) % Plt Count 196 (150-400) X10^3/uL Neut % (Auto) 62.8 (50-75) % Lymph % (Auto) 22.8 L (25-40) % [place] % (Auto) 9.7 (3-14) % Eos % (Auto) 4.0 (2-4) % Baso % (Auto) 0.7 (0-2) % Neut # (Auto) 5500 (9616-4568) /uL Lymph # (Auto) 2000 (2756-8346) /uL [place] # (Auto) 900 (0-900) /uL Eos # (Auto) 400 (0-450) /uL Baso # (Auto) 100 (0-100) /uL D-Dimer (<230) ng/mL Sodium 137 (137-145) mmol/L Potassium 3.9 (3.4-5.1) mmol/L Chloride 102 (98-107) mmol/L Carbon Dioxide 30 (22-32) mmol/L BUN 13 (7-17) mg/dL Creatinine 0.73 (0.52-1.04) mg/dL Estimated GFR > 60.0 (>60) mL/min BUN/Creatinine Ratio 17.8 (6-22) Glucose 84 (70-100) mg/dL Lactate (0.7-2.1) mmol/L Calcium 9.4 (8.4-10.2) mg/dL Total Bilirubin 0.9 (0.2-1.3) mg/dL AST 27 (14-36) IU/L ALT 23 (<35) IU/L Alkaline Phosphatase 92 (38-126) U/L Total Protein 7.9 (6.3-8.2) g/dL Albumin 4.5 (3.5-5.0) g/dL Globulin 3.4 (1.7-4.1) g/dL Albumin/Globulin Ratio 1.3 (1.0-2.8) SARS-CoV-2 (PCR) Negative (Negative) 11/30/21 11/30/21 Range/Units 21:58 21:58 WBC (4.5-11.0) X10^3/uL RBC (4.0-5.2) X10^6/uL Hgb (12.0-16.0) g/dL Hct (36-46) % MCV (80-100) fL MCH (26-34) PG MCHC (30-36) % RDW (11.6-14.8) % Plt Count (150-400) X10^3/uL Neut % (Auto) (50-75) % Lymph % (Auto) (25-40) % [place] % (Auto) (3-14) % Eos % (Auto) (2-4) % Baso % (Auto) (0-2) % Neut # (Auto) (2776-3440) /uL Lymph # (Auto) (6911-4640) /uL [place] # (Auto) (0-900) /uL Eos # (Auto) (0-450) /uL Baso # (Auto) (0-100) /uL D-Dimer < 200 (<230) ng/mL Sodium (137-145) mmol/L Potassium (3.4-5.1) mmol/L Chloride (98-107) mmol/L Carbon Dioxide (22-32) mmol/L BUN (7-17) mg/dL Creatinine (0.52-1.04) mg/dL Estimated GFR (>60) mL/min BUN/Creatinine Ratio (6-22) Glucose (70-100) mg/dL Lactate 1.0 (0.7-2.1) mmol/L Calcium (8.4-10.2) mg/dL Total Bilirubin (0.2-1.3) mg/dL AST (14-36) IU/L ALT (<35) IU/L Alkaline Phosphatase (38-126) U/L Total Protein (6.3-8.2) g/dL Albumin (3.5-5.0) g/dL Globulin (1.7-4.1) g/dL Albumin/Globulin Ratio (1.0-2.8) SARS-CoV-2 (PCR) (Negative) Imaging Data CT scan - chest: Radiologist's Impression: Launch?[place] [address] CT Scan Report Signed Patient: Anna Mendoza MR#: [id number] : 1985 Acct:[id number] Age/Sex: 36 / F Date of Service: 11/30/21 Loc: ED Accession Number: [id number] ?? Procedure: CT angio chest PE protocol Ordering Provider: Teja Ogden D.O. PROCEDURE:? CT ANGIO CHEST PE PROTOCOL ? INDICATIONS:? left sided chest pain, radiation to neck, severe SOB with exersion ? TECHNIQUE:? After the administration of intravenous contrast, 2 mm thick sections acquired from the pulmonary apices to the posterior costophrenic angles.? 3-dimensional maximum intensity projection (MIP) coronal and sagittal reformats were then acquired through the thorax.? For radiation dose reduction, the following was used:? automated exposure control, adjustment of mA and/or kV according to patient size.? ? COMPARISON:? [facility], CR, XR CHEST 2V, 11/30/2021, 21:55. ? FINDINGS:? Image quality:? Excellent.? ? Pulmonary arteries:? Pulmonary arteries are normal in size, and demonstrate no intraluminal filling defects to suggest central pulmonary embolism.? ? Lungs and pleura:? Mild dependent bibasilar atelectasis.? No acute airspace disease.? No pleural effusions or pneumothorax.? Central and peripheral airways are patent.? ? Mediastinum:? Heart size is normal, without pericardial effusion.? No mediastinal or hilar adenopathy.? Thoracic aorta is normal in caliber and enhancement.? Esophagus is normal in caliber, without hiatal hernia.? ? Bones and chest wall:? No suspicious bony lesions.? Ribs and thoracic spine appear intact throughout.? Thyroid gland is unremarkable.? No axillary or supraclavicular adenopathy.? ? Abdomen:? Visualized upper abdominal solid organs appear normal in the early arterial phase of enhancement.? ? IMPRESSION:? No acute pulmonary emboli.? No acute cardiopulmonary abnormalities. ? ? Dictated by: Shayne Carbajal M.D. on 11/30/2021 at 23:21 ? ? Approved by: Shayne Carbajal M.D. on 11/30/2021 at 23:24 ? ECG Data Interpretation: EKG is normal sinus rhythm rate [79 ] and free of any signs of ischemia or ectopy. No ST segmental elevation or depression. No T wave inversions MDM Narrative Medical decision making narrative: Multiple causes of chest pain considered including [place], PE, pneumothorax, pneumonia, aortic dissection, and pleurisy. Patient reports no radiation, no diaphoresis, no provocation with exertion, and no vomiting. Patient's symptoms are essentially non-existent during her visit, vital signs are stable in very reassuring, physical exam is very reassuring, labs are unremarkable Findings and discharge diagnosis discussed with patient/family followed by verbalization of understanding Return precautions discussed with patient/family whom verbalize understanding. Discharge Plan Departure Patient Disposition: Home Clinical Impression: Atypical chest pain, Acute dyspnea Instructions: DI for Atypical Chest Pain, DI for Shortness of Breath Activity Restrictions/Additional Instructions: *You have been diagnosed with [shortness of breath and atypical chest pain. Your history, physical exam, labs, EKG and CT scan are very reassuring there is no evidence of heart attack, pneumonia, fluid around her heart, pulmonary embolism or other significant diagnosis that would require a specific or immediate therapy. As we discussed, however, you will need further workup that can be performed by your primary care provider *What to do: *Please continue to take your regular medications as directed. [ ] New medication prescriptions sent to your pharmacy: [ ] [ ] New medication written as a paper prescription [x ] No new medications given *Please follow up with your primary care provider in 2-3 days, call for an appointment. Let them know you were seen in the Emergency Department and that we ask that you be seen in follow up. We will electronically transmit a record of today's note if your PCP is in our system *If you do not have a primary care provider please contact the [facility] Resource line at [phone]. They will ask some questions about your medical history and help get you set up with a doctor in the community. *Return to Emergency Department if you should have any new, worsening or concerning symptoms, such as [fever greater than 101 F, shaking chills, worsening pain, persistent vomiting or other bothersome symptoms] Prescriptions: No Action benzonatate [Tessalon Perles] 100 mg capsule 100 mg PO TID PRN (Reason: cough) Qty: 14 0RF lidocaine 5 % adhesive patch,medicated 1 patch topical DAILY PRN (Reason: back pain) Qty: 30 0RF Rx Instructions: leave on most painful area for up to 12 hrs cyclobenzaprine 10 mg tablet 10 mg PO BID PRN (Reason: muscle spasm) Qty: 10 0RF hydrocortisone 2.5 % cream 1 applic topical TID PRN (Reason: allergic reaction) Qty: 28 0RF albuterol sulfate [ProAir HFA] 90 mcg/actuation HFA aerosol inhaler INHALATION 0RF loratadine 10 mg tablet 10 mg PO DAILY 0RF
[2021-11-30 22:26] LABS: Alanine Aminotransferase 23 IU/L (<35); Albumin 4.5 g/dL (3.5-5.0); Albumin Globulin Ratio 1.3 (1.0-2.8); Alkaline Phosphatase 92 U/L (38-126); Aspartate Aminotransferase 27 IU/L (14-36); BUN Creatinine Ratio 17.8 (6-22); Bilirubin Total 0.9 mg/dL (0.2-1.3); Blood Urea Nitrogen 13 mg/dL (7-17); Calcium 9.4 mg/dL (8.4-10.2); Carbon Dioxide 30 mmol/L (22-32); Chloride 102 mmol/L (98-107); Estimated Glomerular Filt Rate > 60.0 mL/min (>60); Globulin 3.4 g/dL (1.7-4.1); Glucose 84 mg/dL (70-100); HEMOLYSIS < 15 (0-50); Potassium 3.9 mmol/L (3.4-5.1); Sodium 137 mmol/L (137-145); Total Protein 7.9 g/dL (6.3-8.2)
[2021-11-30 22:31] LABS: D Dimer < 200 ng/mL (<230)
--- NOTE | 2021-11-30 22:52 | DI.CT.S_ITS ---
PROCEDURE: CT ANGIO CHEST PE PROTOCOL INDICATIONS: left sided chest pain, radiation to neck, severe SOB with exersion TECHNIQUE: After the administration of intravenous contrast, 2 mm thick sections acquired from the pulmonary apices to the posterior costophrenic angles. 3-dimensional maximum intensity projection (MIP) coronal and sagittal reformats were then acquired through the thorax. For radiation dose reduction, the following was used: automated exposure control, adjustment of mA and/or kV according to patient size. COMPARISON: [facility], CR, XR CHEST 2V, 11/30/2021, 21:55. FINDINGS: Image quality: Excellent. Pulmonary arteries: Pulmonary arteries are normal in size, and demonstrate no intraluminal filling defects to suggest central pulmonary embolism. Lungs and pleura: Mild dependent bibasilar atelectasis. No acute airspace disease. No pleural effusions or pneumothorax. Central and peripheral airways are patent. Mediastinum: Heart size is normal, without pericardial effusion. No mediastinal or hilar adenopathy. Thoracic aorta is normal in caliber and enhancement. Esophagus is normal in caliber, without hiatal hernia. Bones and chest wall: No suspicious bony lesions. Ribs and thoracic spine appear intact throughout. Thyroid gland is unremarkable. No axillary or supraclavicular adenopathy. Abdomen: Visualized upper abdominal solid organs appear normal in the early arterial phase of enhancement. IMPRESSION: No acute pulmonary emboli. No acute cardiopulmonary abnormalities. Dictated by: Shayne Carbajal M.D. on 11/30/2021 at 23:21 Approved by: Shayne Carbajal M.D. on 11/30/2021 at 23:24
[2021-11-30 23:03] VITALS: BP 115/76; PULSE 91; RESP 16
[2021-11-30 23:06] LABS: COVID19 -Nasal RAPID Negative (Negative)
== END 2021-11-30 23:53 | disposition home or self-care (01) ==
PROVIDERS: Emergency Provider Emergency Medicine
DX: R07.89 Other chest pain (principal); R06.00 Dyspnea, unspecified; Z87.891 Personal history of nicotine dependence; Z20.822 Contact with and (suspected) exposure to COVID-19
CPT/HCPCS: 36415; 71046; 71275; 80053; 83605; 85025; 85379; 87635; 93010; 99284; C9803; Q9967

== ENCOUNTER → 2022-07-13 10:30 | Outpatient (CLI) | payer OTHER, SELFPAY ==
[2022-07-13 12:57] LABS: COVID19 -Nasal RAPID Negative (Negative)
== END ==
PROVIDERS: Visit Provider Surgery
DX: Z20.822 Contact with and (suspected) exposure to COVID-19 (principal); Z01.812 Encounter for preprocedural laboratory examination
CPT/HCPCS: 87635; C9803

== ENCOUNTER 2022-07-16 12:31 | Day surgery (SDC) | payer OTHER, SELFPAY ==
[2022-07-16 12:58] VITALS: BP 114/82; PULSE 76; RESP 16; TEMP 36.9; O2SAT 100
[2022-07-16 13:00] VITALS: BMI 29.7
[2022-07-16] MEDS: SODIUM CHLORIDE 0.9% 1,000 ML 84 ML IV (13:10)
--- NOTE | 2022-07-16 13:58 | PM.HP.1 ---
History of Present Illness History of Present Illness Date Patient Seen: 07/16/22 Time Patient Seen: 13:59 Chief complaint: SDC Narrative: I reviewed the recent note from Dr. Gonzalez. No significant changes. Patient History Surgical History History of S/P cholecystectomy Family & Social History Social History: household members family Tobacco & Substance use: Tobacco type e-cigarettes Smoking Status Former smoker alcohol intake frequency other Substance Use Type does not use Meds Home Medications and Allergies Home Medications Medication Instructions Recorded Confirmed Type albuterol sulfate 90 mcg/actuation inhalation 01/25/20 History aerosol inhaler (ProAir HFA) Allergies Allergy/AdvReac Type Severity Reaction Status Date / Time hydrocodone [From Vicodin] Allergy Unknown Verified 07/16/22 12:55 Review of Systems Review of Systems ROS: Yes All systems reviewed with the patient and are negative except as otherwise documented Exam Vital Signs (past 8 hours): - 07/16/22 12:58 Temperature 98.5 F Pulse Rate 76 Respiratory Rate 16 Blood Pressure 114/82 Pulse Oximetry 100 Oxygen Delivery Method Room Air Oxygen Delivery Method Room Air Const General: cooperative HENMT Head: normal to inspection Eyes General: appearance normal, both eyes and all related structures Neck Neck: normal visual inspection Chest Chest: normal inspection of the chest Resp Effort & Inspection: normal respiratory effort Cardio Rate: regular rate GI Inspection: normal to inspection Skin General: no rashes or lesions noted Neuro General: patient alert and patient awake Extrem General: normal to inspection and no pedal edema Psych Appearance: grossly normal Assessment & Plan Assessment & Plan narrative: 36-year-old female with chronic constipation since age 20. She is had some rectal bleeding. There is a family history of colon polyps in her dad. Colonoscopy is planned for today. Time Spent With Patient Critical Care time: I spent a total of [] minutes of critical care time on this patient's care today; this time is exclusive of procedural time.
--- NOTE | 2022-07-16 14:00 | PM.PREOP ---
Pre-operative Note COVID-19 COVID-19 status: Negative Result date/Date tested (Pos, Neg/Pending): 07/13/22 Criteria for continued procedure: Possibility delay results in more complex future surgery or treatment Interval Note History & Physical reviewed/Exam performed by Physician: Yes Changes to H&P: No ASA Class (for procedural sedation): II
--- NOTE | 2022-07-16 14:54 | PM.OP.COLON ---
Operative Date/Time/Diagnoses Date of procedure: 07/16/22 Time of procedure: 14:54 Pre-op diagnosis: Rectal bleeding, constipation, abdominal pain, family history of colon polyps. Post-op diagnosis: same Procedure & Clinicians Study performed: Colonoscopy Same procedure as scheduled: Yes Indications: Rectal bleeding, constipation, abdominal pain, family history of colon polyps. Surgeon: Tom Roy Procedure Notes SCOAP/Timeout: Done Procedure in detail: After the risks and benefits were explained, written and verbal informed consent was obtained. The patient was brought into the procedure room and placed into the left lateral decubitus position. Please see nurse consumer relations specialist notes for sedation details. Digital rectal examination was accomplished prior to sedation. The scope was introduced into the patient and advanced under direct visualization to the cecum as identified by the appendiceal orifice and ileocecal valve. The scope was slowly withdrawn to carefully examine the mucosa for any defects or lesions. Comprehensive imaging was accomplished throughout the rectum including the dentate line. The colon was decompressed, the scope was then removed from the patient who tolerated the procedure well. Pediatric colonoscope Bowel prep excellent Scope withdrawal time: 9 minutes Sedation minutes: 22 Specimen(s): none sent Complications: none Impression: No evidence of proctitis. No evidence of colitis. No polyps or mass lesions identified throughout. The terminal ileum was interrogated and appeared visually normal. Patient had a slightly redundant mildly tortuous left colon. Rectal examination prior to sedation revealed a normal anal wink. Patient had nonthrombosed nonbleeding small grade 2 and grade 3 hemorrhoids. Anal sphincter tone was normal. No mass lesions. The patient was able to put a normal external anal sphincter squeeze pressure on command. With simulated defecation, the anal sphincter mechanism seemed to appropriately relax and expel the finger. Endoscopic diagnosis 1. Mildly redundant colon 2. Grade 2 to grade 3 hemorrhoids 3. Otherwise visually normal colonoscopy and terminal ileoscopy Post-procedure Plan for aftercare: 1. Continue twice daily supplemental fiber. 2. Continue daily MiraLax. 3. Follow up GI clinic on ongoing response. If there are continued struggles, perhaps a Linzess prescription may be prudent. Disposition: PACU
[2022-07-16 14:57] VITALS: BP 109/69; PULSE 75; RESP 18; O2SAT 100
[2022-07-16 15:01] VITALS: BP 109/69; PULSE 78; RESP 16; TEMP 36.6; O2SAT 99
[2022-07-16 15:17] VITALS: BP 122/82; PULSE 74; RESP 15; O2SAT 98
[2022-07-16 15:24] VITALS: BP 127/87; PULSE 68; RESP 14; TEMP 36.4; O2SAT 98
== END 2022-07-16 15:28 | disposition home or self-care (01) ==
PROVIDERS: Referring Provider Internal Medicine Gastroenterology; Visit Provider Internal Medicine Gastroenterology
PROC: 0DJD8ZZ Inspection of Lower Intestinal Tract, Via Natural or Artificial Opening Endoscopic (ICD-10-PCS; CPT 45378; principal; 2022-07-16 15:00)
DX: K64.2 Third degree hemorrhoids (principal); K59.00 Constipation, unspecified; R14.0 Abdominal distension (gaseous); K62.5 Hemorrhage of anus and rectum; Q43.8 Other specified congenital malformations of intestine; R35.0 Frequency of micturition; F90.9 Attention-deficit hyperactivity disorder, unspecified type; Z83.71 Family history of colonic polyps; Z87.891 Personal history of nicotine dependence
CPT/HCPCS: 45378; 81025; J2704

== ENCOUNTER 2022-12-23 21:47 | Emergency (ER) | payer OTHER, SELFPAY ==
[2022-12-23 22:08] VITALS: BP 141/90; PULSE 86; RESP 20; TEMP 36.8; O2SAT 100; BMI 29.6
[2022-12-23 23:15] VITALS: BP 131/86; PULSE 84; RESP 20; O2SAT 100
[2022-12-23 23:30] VITALS: BP 133/90; PULSE 83; RESP 20; O2SAT 100
[2022-12-23 23:35] LABS: Appearance Urine UA CLEAR; Bilirubin Urine UA NEGATIVE (NEGATIVE); Glucose Urine UA NEGATIVE (Negative); Ketones Urine UA TRACE (NEGATIVE); Leukocyte Esterase Urine UA NEGATIVE (NEGATIVE); Nitrite Urine UA NEGATIVE (Negative); Occult Blood Urine UA NEGATIVE (Negative); Protein Urine UA NEGATIVE (Negative); Specific Gravity Urine UA 1.025 (1.000-1.035); Urobilinogen Urine UA 0.2 E.U./dL (0.2)
[2022-12-23 23:35] LABS: Add Manual Diff / Slide Review NO; Basophils Absolute Auto 100 /uL (0-100); Basophils Percent Auto 0.8 % (0-2); Eosinophils Absolute Auto 500 /uL (0-450); Eosinophils Percent Auto 4.4 % (2-4); Hematocrit 38.9 % (36-46); Hemoglobin 13.6 g/dL (12.0-16.0); Lymphocytes Absolute Auto 3300 /uL (1100-4500); Lymphocytes Percent Auto 28.8 % (25-40); Mean Corpuscular Hemoglobin 28.8 PG (26-34); Mean Corpuscular Volume 82.4 fL (80-100); Monocytes Absolute Auto 800 /uL (0-900); Monocytes Percent Auto 7.2 % (3-14); Neutrophils Absolute Auto 6800 /uL (1500-7000); Neutrophils Percent Auto 58.8 % (50-75); Platelet Count 233 X10^3/uL (150-400); Red Blood Cell Count 4.72 X10^6/uL (4.0-5.2); Red Cell Distribution Width 12.2 % (11.6-14.8); White Blood Cell Count 11.5 X10^3/uL (4.5-11.0)
[2022-12-23 23:36] LABS: Color Urine UA Dark Yellow
[2022-12-23 23:38] LABS: Alanine Aminotransferase 20 IU/L (<35); Albumin 4.7 g/dL (3.5-5.0); Albumin Globulin Ratio 1.3 (1.0-2.8); Alkaline Phosphatase 96 U/L (38-126); Aspartate Aminotransferase 21 IU/L (14-36); BUN Creatinine Ratio 14.5 (6-22); Blood Urea Nitrogen 10 mg/dL (7-17); Calcium 9.4 mg/dL (8.4-10.2); Carbon Dioxide 24 mmol/L (22-32); Chloride 102 mmol/L (98-107); Estimated Glomerular Filt Rate > 60 mL/min (>60); Globulin 3.7 g/dL (1.7-4.1); Glucose 98 mg/dL (70-100); HEMOLYSIS < 15 (0-50); Lipase 50 U/L (23-300); Potassium 4.2 mmol/L (3.4-5.1); Sodium 138 mmol/L (137-145); Total Protein 8.4 g/dL (6.3-8.2)
[2022-12-23 23:42] LABS: Bacteria Urine Moderate (10-30); Mucus Urine 3+ (Negative); RBC Urine None Seen (0-5/HPF); WBC Urine None Seen (0-5/HPF)
[2022-12-23 23:43] LABS: Culture Indicated Urine Cult Not Indicated; Squamous Epithelial Cell Urine 5-10 /HPF (0-5/HPF)
[2022-12-24] VITALS: BP 141/87; PULSE 81; RESP 20; O2SAT 100
--- NOTE | 2022-12-24 00:11 | ED_ITS ---
HPI - General Adult General Chief complaint: Urogenital-Female Stated complaint: fever/chills x3 days Time Seen by Provider: 12/24/22 00:10 Source: patient Mode of arrival: Ambulatory History of Present Illness HPI narrative: 37-year-old woman who presents with flu-like symptoms consisting of fevers, chills but has not had any significant measured temperature abnormalities. It began on December 20 got worse on the . She describes a bleach like smell to her urine that has been present for a number of months. She isn't describing any dysuria, no hematuria no urgency she does note some mild intermittent brief pelvic cramping. She had a well-woman exam mid summer with STI screening and has no sexual partners since that time. No vaginal discharge. She notes that she did have COVID approximately 7-8 months ago. She is had some fatigue since then. She reports occasional episodes of dizziness without the full sense of spinning. She describes an episode 2 weeks ago where she had a period of chills and aches as well. This did resolve. No vomiting or diarrhea. No headaches. No chest pain. Related Data Home Medications Medication Instructions Recorded Confirmed albuterol sulfate 90 mcg/actuation inhalation 01/25/20 aerosol inhaler (ProAir HFA) Allergies Allergy/AdvReac Type Severity Reaction Status Date / Time hydrocodone [From Vicodin] Allergy Unknown Verified 07/16/22 12:55 Review of Systems Review of Systems Narrative: Remainder of complete review of systems is otherwise unremarkable except for that included in the HPI. Patient History Surgical History History of S/P cholecystectomy Social History household members: family Smoking Status: Former smoker Smoking Status: Former smoker alcohol intake frequency: other Substance Use Type: does not use Exam Initial Vital Signs Initial Vital Signs: Vital Signs Temperature 98.3 F 12/23/22 22:08 Pulse Rate 86 12/23/22 22:08 Respiratory Rate 20 12/23/22 22:08 Blood Pressure 141/90 H 12/23/22 22:08 Pulse Oximetry 100 12/23/22 22:08 Oxygen Delivery Method 12/23/22 22:08 General: Healthy appearing, in no acute distress. Able to give a complete and coherent history. Well-nourished well-developed HEENT: Moist mucous membranes, normal sclera with reactive pupils, Neck: No cervical adenopathy Respiratory: Lungs are clear to auscultation, no wheezing no rales no rhonchi. Full and symmetrical air movement Cardiac: Regular rate and rhythm no murmurs no bruits Abdomen: Soft, nontender, good bowel tones, no flank pain Skin: Warm and dry, no rashes Neurologic: Grossly neurologically intact with no obvious asymmetries or abno rmalities Extremities: No trauma, well perfused Psych: Cooperative, appropriate insight and affect Course Orders Ordered: ED Orders 12/23/22 23:10 Complete Blood Count AUTO DIFF Stat Comprehensive Metabolic Panel Stat Lipase Stat 12/23/22 23:30 Urinalysis and Microscopic Stat 12/24/22 00:26 Respiratory Panel (Film Array) Stat Ondansetron HCl (Ondansetron 4 Mg/2 Ml Inj) 4 mg IV NOW PRN PRN Reason: Nausea And Vomiting Ondansetron HCl (Ondansetron 4 Mg Odt) 4 mg SL NOW PRN PRN Reason: Nausea And Vomiting Vital Signs Vital signs: Vital Signs - 8 hr 12/23/22 22:08 12/23/22 23:15 12/23/22 23:30 Temperature 98.3 F Pulse Rate 86 84 83 Respiratory Rate 20 20 20 Blood Pressure 141/90 H 131/86 133/90 Pulse Oximetry 100 100 100 Oxygen Delivery Method Room Air Room Air 12/24/22 00:00 12/24/22 00:30 Temperature Pulse Rate 81 80 Respiratory Rate 20 20 Blood Pressure 141/87 H 138/86 Pulse Oximetry 100 100 Oxygen Delivery Method Room Air Room Air Medical Decision Making Lab Data 12/23/22 23:10 12/23/22 23:10 Labs: Lab Results 12/23/22 12/23/22 12/23/22 Range/Units 23:10 23:10 23:30 WBC 11.5 H (4.5-11.0) X10^3/uL RBC 4.72 (4.0-5.2) X10^6/uL Hgb 13.6 (12.0-16.0) g/dL Hct 38.9 (36-46) % MCV 82.4 (80-100) fL MCH 28.8 (26-34) PG MCHC 35.0 (30-36) % RDW 12.2 (11.6-14.8) % Plt Count 233 (150-400) X10^3/uL Neut % (Auto) 58.8 (50-75) % Lymph % (Auto) 28.8 (25-40) % [place] % (Auto) 7.2 (3-14) % Eos % (Auto) 4.4 H (2-4) % Baso % (Auto) 0.8 (0-2) % Neut # (Auto) 6800 (4929-4409) /uL Lymph # (Auto) 3300 (4860-0011) /uL Pratt # (Auto) 800 (0-900) /uL Eos # (Auto) 500 H (0-450) /uL Baso # (Auto) 100 (0-100) /uL Sodium 138 (137-145) mmol/L Potassium 4.2 (3.4-5.1) mmol/L Chloride 102 (98-107) mmol/L Carbon Dioxide 24 (22-32) mmol/L BUN 10 (7-17) mg/dL Creatinine 0.69 (0.52-1.04) mg/dL Estimated GFR > 60 (>60) mL/min BUN/Creatinine Ratio 14.5 (6-22) Glucose 98 (70-100) mg/dL Calcium 9.4 (8.4-10.2) mg/dL Total Bilirubin 1.0 (0.2-1.3) mg/dL AST 21 (14-36) IU/L ALT 20 (<35) IU/L Alkaline Phosphatase 96 (38-126) U/L Total Protein 8.4 H (6.3-8.2) g/dL Albumin 4.7 (3.5-5.0) g/dL Globulin 3.7 (1.7-4.1) g/dL Albumin/Globulin Ratio 1.3 (1.0-2.8) Lipase 50 (23-300) U/L Urine Color Dark yellow Urine Appearance Clear Urine pH 6.0 (4.5-8.0) Ur Specific [place] 1.025 (1.000-1.035) Urine Protein Negative (Negative) Urine Glucose (UA) Negative (Negative) g/dL Urine Ketones Trace H (NEGATIVE) Urine Occult Blood Negative (Negative) Urine Nitrate Negative (Negative) Urine Bilirubin Negative (NEGATIVE) Urine Urobilinogen 0.2 (0.2) E.U./dL Ur Leukocyte Esterase Negative (NEGATIVE) Urine RBC None seen (0-5/HPF) Urine WBC None seen (0-5/HPF) Ur Squamous Epith Cells 5-10 /hpf H (0-5/HPF) Urine Bacteria Moderate (10-30) H (None) Urine Mucus 3+ H (Negative) Ur Culture Indicated? Cult not indicated Point of Care Testing Test Results Negative Point of care testing: Point of Care Testing Test Results Negative MDM Narrative Medical decision making narrative: CC: Fevers and chills with flu-like symptoms for the past 4 days. This is a new diagnosis, uncertain prognosis potential for significant systemic infection Corroborating data: Data collected from: patient, Medical records reviewed: Prior Gastroenterology, surgery and primary care notes reviewed Differential considered: Viral syndrome, sepsis, urinary tract infection, pyelonephritis, appendicitis, diverticulitis, bowel obstruction, pelvic inflammatory disease, sexually transmitted infection, long COVID syndrome Exam documented above, pertinent findings include: Completely benign exam Lab Test results independently reviewed as above. Pertinent findings: CBC shows mild leukocytosis at 11.5 however no left shift. No anemia. Chemistries are entirely reassuring Urinalysis has trace ketones, squamous epithelial cells mucous and moderate amount of bacteria. I do not think this represents infection Discussion: 37-year-old woman with fever and chills spoke to consulting nurse this evening he was concerned for sepsis and suggested ER evaluation. Your evaluation does not suggest bacterial infection or sepsis. I do not think that she has a urinary tract infection, pneumonia or pyelonephritis. Pelvic inflammatory disease is far less likely. This may simply be sequential viral infections. Given the fact that she is had odd symptoms and recurrent episodes since her COVID infection in May the possibility of lung COVID is at least entertained. We did briefly discuss this. With shared decision-making we opted to do no additional testing be on full respiratory panel. If this shows a virus questions are answered and she will wait out healing of said virus. If viral panel is completely negative than the possibility of long COVID is at least something for her to discuss with her primary care doctor Disposition: see below, along with detailed discharge instructions that have been reviewed with patient as well as indications for ED re-evaluation and additional outpatient follow up Discharge Plan Departure Patient Disposition: Home Clinical Impression: Acute viral syndrome Instructions: DI for Viral Upper Respiratory Infection -- Adult Activity Restrictions/Additional Instructions: Thank you for coming in today There is no sign of a bladder infection, kidney infection or sepsis. I suspect you have a viral syndrome and we have checked a respiratory panel. I will text you at [phone] with results of that. If you have a virus, conservative management with fluids, ibuprofen and Tylenol is entirely reasonable. If the panel is negative and you continue to have similar symptoms then it may be reasonable to consider the possibility of long COVID syndrome. Unfortunately this is a diagnosis that is not well defined and for which we have no significant treatments. We do know that with this syndrome, the fatigue is very real and does not improve with forced increased activity. You simply need the sleep that your body is demanding. Please follow-up with her primary care physician and feel free to return to the emergency department if you develop new signs or symptoms. Prescriptions: No Action albuterol sulfate [ProAir HFA] 90 mcg/actuation HFA aerosol inhaler INHALATION Label Comments: over a year ago Referrals: ProviderYokasta [Primary Care Provider] - Stand Alone Forms: Patient Portal/API
[2022-12-24 00:30] VITALS: BP 138/86; PULSE 80; RESP 20; O2SAT 100
[2022-12-24 01:23] LABS: Adenovirus Not Detected (Not Detect); B. parapertussis Not Detected (Not Detecte); Bordetella pertussis Not Detected (Not Detecte); Chlamydophila pneumoniae Not Detected (Not Detect); Coronavirus 229E Not Detected (Not Detect); Coronavirus HKU1 Not Detected (Not Detect); Coronavirus NL 63 Not Detected (Not Detect); Coronavirus OC43 Not Detected (Not Detect); Human Metapneumovirus Not Detected (Not Detect); Human Rhinovirus/Enterovirus Detected (Not Detect); Influenza A Not Detected (Not Detect); Influenza B Not Detected (Not Detect); Mycoplasma pneumoniae Not Detected (Not Detect); Parainfluenza Virus 1 Not Detected (Not Detect); Parainfluenza Virus 2 Not Detected (Not Detect); Parainfluenza Virus 3 Not Detected (Not Detect); Parainfluenza Virus 4 Not Detected (Not Detect); Respiratory Syncytial Virus Not Detected (Not Detect); SARS- CoV-2 Not Detected (Not Detecte)
== END 2022-12-24 00:53 | disposition home or self-care (01) ==
PROVIDERS: Emergency Provider Emergency Medicine
DX: B34.8 Other viral infections of unspecified site (principal); R42 Dizziness and giddiness; Z86.16 Personal history of COVID-19; Z20.822 Contact with and (suspected) exposure to COVID-19
CPT/HCPCS: 36415; 80053; 81001; 81025; 83690; 85025; 87633; 99283

== ENCOUNTER 2023-04-08 12:13 | Emergency (ER) | payer OTHER, SELFPAY ==
[2023-04-08 12:19] VITALS: BP 144/90; PULSE 94; RESP 18; TEMP 36.9; O2SAT 99; BMI 29.6
[2023-04-08 13:09] VITALS: PULSE 69; O2SAT 100
[2023-04-08 13:12] VITALS: BP 124/80; PULSE 66; O2SAT 100
[2023-04-08 13:30] VITALS: BP 114/76; PULSE 69; O2SAT 98
--- NOTE | 2023-04-08 13:45 | ED.RECABL ---
HPI - Recheck/Abnormal Lab/Rx General Chief Complaint: Recheck/Abnormal Lab/Rx Stated Complaint: dr bre/symptoms of seratonin syndrome Time Seen by Provider: 04/08/23 13:17 History of Present Illness HPI narrative: 37-year-old female former smoker with history of depression and ADHD presents at the request of her primary care provider for evaluation of symptoms thought to be related to the recent initiation of Lexapro and concern for serotonin syndrome. She is taken 2 doses now and since initiating this medication has felt jittery, generally unwell, at times nauseated. She is had no headache or blurred vision, no trouble with speech, no fever or chills. No stiff extremities or twitching Related Data Home Medications Medication Instructions Recorded Confirmed albuterol sulfate 90 mcg/actuation inhalation 01/25/20 aerosol inhaler (ProAir HFA) Allergies Allergy/AdvReac Type Severity Reaction Status Date / Time hydrocodone [From Vicodin] Allergy Unknown Verified 04/08/23 12:19 Review of Systems Review of Systems Narrative: GENERAL: Denies chills, fatigue, malaise, fever, sweats. HEENT: Denies sinus pain, ear pain, sore throat, difficulty swallowing, dizziness. RESPIRATORY: Denies dyspnea, cough, wheezing, hemoptysis, sputum. CARDIOVASCULAR: Denies chest pain, palpitations, orthopnea, edema, GASTROINTESTINAL: Denies nausea, vomiting, abdominal pain, diarrhea, constipation, melena. : Denies dysuria, frequency, incontinence, hematuria, urinary retention. MUSCULOSKELETAL: See HPI SKIN: Denies rash, skin lesions, or other NEUROLOGIC: See HPI PSYCHIATRIC: See HPI 12 point review of systems is negative except for those stated above Patient History Surgical History History of S/P cholecystectomy Social History household members: family Smoking Status: Former smoker Smoking Status: Former smoker alcohol intake frequency: holidays/special occasions only Substance Use Type: does not use Exam Narrative Exam Narrative: GENERAL: [37] year old patient appears stated age. Well-developed patient, in mild distress. Anxious HEAD: Atraumatic. Normocephalic. EYES: Pupils equal round and reactive. Extraocular motions intact. No scleral icterus. No injection or drainage. ENT: Nose without bleeding, purulent drainage. Throat without erythema, tonsillar hypertrophy or exudate. Airway patent. NECK: Trachea midline. Non tender CARDIOVASCULAR: Regular rate and rhythm without murmurs, gallops, or rubs. RESPIRATORY: Clear to auscultation. Breath sounds equal bilaterally. No wheezes, rales, or rhonchi. GASTROINTESTINAL: Abdomen soft, non-tender, nondistended. EXTREMITIES: No edema or joint tenderness. BACK: Nontender without deformity or crepitance. No flank tenderness. NEURO: AOx3. B/L LE reflexes 2+, no clonus SKIN: No rash or erythema of visible areas Initial Vital Signs Initial Vital Signs: Vital Signs Temperature 98.5 F 04/08/23 12:19 Pulse Rate 94 H 04/08/23 12:19 Respiratory Rate 18 04/08/23 12:19 Blood Pressure 144/90 H 04/08/23 12:19 Pulse Oximetry 99 04/08/23 12:19 Oxygen Delivery Method Room Air 04/08/23 12:19 Course Orders Ordered: ED Orders 04/08/23 12:34 EKG-12 Lead Stat Vital Signs Vital signs: Vital Signs - 8 hr 04/08/23 12:19 04/08/23 13:09 04/08/23 13:12 Temperature 98.5 F Pulse Rate 94 H 69 Respiratory Rate 18 Blood Pressure 144/90 H 124/80 Pulse Oximetry 99 100 Oxygen Delivery Method Room Air 04/08/23 13:12 Temperature Pulse Rate 66 Respiratory Rate Blood Pressure Pulse Oximetry 100 Oxygen Delivery Method MDM - Recheck/Abnormal Lab/Rx MDM Narrative Medical decision making narrative: [37] year old patient presents with concerns regarding medication reaction Multiple etiologies for patient's symptoms considered including, but not limited to: [Serotonin syndrome versus medication intolerance versus other] Prior Charts reviewed in our EMR Primary Historian: patient Serotonin syndrome is considered though patient has stable vital signs, no clonus, no tachycardia, tachypnea, hyperreflexia Findings and discharge diagnosis discussed with patient/family followed by verbalization of understanding Return precautions discussed with patient/family whom verbalize understanding of diagnosis and plan Discharge Plan Departure Patient Disposition: Home Clinical Impression: Medication reaction Instructions: DI for Adverse Drug Reaction -- Other Activity Restrictions/Additional Instructions: *You have been diagnosed with [adverse medication reaction. As we discussed serotonin syndrome was considered but you do not meet the classic diagnostic criteria more likely than not your just sensitive to higher levels of serotonin. As we discussed there is no indication for any further workup or a specific treatment.] *What to do: *Please do not take anymore of the Lexapro but otherwise continue taking your routine medications as previously directed *Please follow up with your primary care provider in 2-3 days, call for an appointment. Let them know you were seen in the Emergency Department and that we ask that you be seen in follow up. We will electronically transmit a record of today's note if your PCP is in our system *Return to Emergency Department if you should have any new, worsening or concerning symptoms, such as [fever greater than 101 F, shaking chills, worsening pain, persistent vomiting or other bothersome symptoms] Prescriptions: No Action albuterol sulfate [ProAir HFA] 90 mcg/actuation HFA aerosol inhaler INHALATION Patient Comments: over a year ago Referrals: ProviderYokasta [Primary Care Provider] - Stand Alone Forms: Patient Portal/API
--- NOTE | 2023-04-08 13:47 | PC.NURSE ---
Patient reports to having started lexapro 2 days ago and reports having increased agitation and irritability after first dose on Saturday. Patient reports having woke up at 2am and not feeling well. Patient reports feeling lightheaded intermittently and feeling as though she was going to pass out. Patient reports having called [facility] clinician line and was having a hard time understanding what was being said. Patient reports confusion and sweaty palms and feet. Patient reports telling the [facility] line she was going to call 911. Patient denies calling 911. Patient arrives stating I still don't feel right but all my other symptoms have disappeared besides lightheadedness.
[2023-04-08 14:00] VITALS: BP 116/80; PULSE 68; O2SAT 98
--- NOTE | 2023-04-08 14:20 | PC.NURSE ---
first time meeting pt at time of D/C, refer to Dr. hernadez.
== END 2023-04-08 14:21 | disposition home or self-care (01) ==
PROVIDERS: Emergency Provider Emergency Medicine
DX: R11.0 Nausea (principal); R03.0 Elevated blood-pressure reading, without diagnosis of hypertension; T50.995A Adverse effect of other drugs, medicaments and biological substances, initial encounter
CPT/HCPCS: 93005; 93010; 99281; 99282